=== PATIENT | male | born 1985 | race Caucasian/White ===

== ENCOUNTER 2018-04-11 08:01 | Day surgery (SDC) | payer OTHER ==
[~2018-04-11] VITALS: Ht 180.3 cm; Wt 102.7 kg
[2018-04-11 08:48] VITALS: BP 122/84; PULSE 63; TEMP 97
[2018-04-11 10:10] VITALS: BP 104/70; PULSE 76; TEMP 98
[2018-04-11 10:25] VITALS: BP 90/60; PULSE 70
[2018-04-11 10:40] VITALS: BP 97/70; PULSE 62
[2018-04-11 10:55] VITALS: BP 103/72; PULSE 60
== END 2018-04-11 11:15 | disposition home or self-care (01) ==
LOC: SDCO 08:01
DX: K29.30 Chronic superficial gastritis without bleeding (principal); Z87.19 Personal history of other diseases of the digestive system
CPT/HCPCS: J2250; J2405; J3010; J7030

== ENCOUNTER 2018-06-07 10:52 | Outpatient (RCR) | payer OTHER | END 2018-06-19 14:20 | disposition home or self-care (01) | LOC: WSOH 10:52 | DX: Z02.89 Encounter for other administrative examinations (principal) ==

== ENCOUNTER 2019-09-21 12:14 | Emergency (ER) | payer SELFPAY ==
[~2019-09-21] VITALS: Ht 182.9 cm; Wt 104.5 kg
[2019-09-21 12:21] VITALS: TEMP 97.8
[2019-09-21] MEDS ORDERED: STATIN (12:54)
[2019-09-21] MEDS ORDERED: PANTOPRAZOLE (12:54)
[2019-09-21 13:12] LABS: COLLECTION METHOD CLEAN CATCH
[2019-09-21 13:22] LABS: BASO % 0.3 % (0.0-2.0); EOS # 0.1 (0.0-0.7); EOS % 0.9 % (0-4.0); GRAN # 7.7 (1.4-6.5); GRAN % 68.6 % (42.2-75.2); HEMATOCRIT 47.4 % (42.0-52.0); HEMOGLOBIN 16.1 g/dl (13.5-18.0); LYMPH # 2.5 (1.2-3.4); MEAN CELL VOLUME 85 fl (80.0-100.0); MEAN CORPUSCULAR HEMOGLOBIN 29 pg (27.0-31.0); MEAN CORPUSCULAR HGB CONC 34 g/dl (33.0-37.0); MEAN PLATELET VOLUME 9.8 fl (7.4-10.4); MONO # 0.9 (0.1-0.6); MONO % 7.8 % (1.7-9.3); PLATELET COUNT 247 K/mm3 (130-400); RED BLOOD COUNT 5.55 M/mm3 (4.20-5.60)
[2019-09-21 13:24] LABS: PH 6 (5-8); SQUAMOUS EPITHELIAL None Seen /hpf; URINE APPEARANCE Clear; URINE BACTERIA None Seen /hpf; URINE BILIRUBIN Negative (NEGATIVE); URINE BLOOD Negative (NEGATIVE); URINE COLOR Colorless; URINE GLUCOSE Negative (NEGATIVE); URINE KETONE Negative (NEGATIVE); URINE LEUKOCYTE ESTERASE Negative (NEGATIVE); URINE NITRATE Negative (NEGATIVE); URINE PROTEIN(semi-quant) Negative (NEGATIVE); URINE RBC None Seen /hpf; URINE UROBILINOGEN Negative (NEGATIVE)
[2019-09-21 13:26] LABS: ALBUMIN 4.8 gm/dL (3.5-5.0); BILIRUBIN,TOTAL 1.1 mg/dL (0.0-1.0); CALCIUM 9.8 mg/dL (8.4-10.2); CREATININE, serum 1.17 (0.66-1.25); MAGNESIUM 2.2 mg/dL (1.6-2.3); POTASSIUM 3.9 mmol/L (3.4-5.0); TOTAL PROTEIN 8.2 gm/dL (6.4-8.2)
[2019-09-21 14:40] VITALS: BP 113/83; PULSE 65
== END 2019-09-21 14:42 | disposition home or self-care (01) ==
LOC: COL.ER 12:14
PROVIDERS: Emergency Medicine
DX: T67.5XXA Heat exhaustion, unspecified, initial encounter (principal); E78.5 Hyperlipidemia, unspecified; K27.9 Peptic ulcer, site unspecified, unspecified as acute or chronic, without hemorrhage or perforation; Z90.49 Acquired absence of other specified parts of digestive tract
CPT/HCPCS: J7030

== ENCOUNTER 2021-04-13 08:01 | Outpatient (RCR) | payer OTHER ==
[~2021-04-13 08:01] MED LIST: PANTOPRAZOLE; STATIN
== END 2021-04-27 | disposition home or self-care (01) ==
LOC: WSOH
DX: S93.401D Sprain of unspecified ligament of right ankle, subsequent encounter (principal); K76.9 Liver disease, unspecified; Z90.49 Acquired absence of other specified parts of digestive tract; Y99.0 Civilian activity done for income or pay
CPT/HCPCS: 24774; L1810

== ENCOUNTER 2021-05-04 10:45 | Outpatient (RCR) | payer OTHER | END 2021-05-28 | disposition home or self-care (01) | LOC: WSOH | DX: S93.401D Sprain of unspecified ligament of right ankle, subsequent encounter (principal); Y99.0 Civilian activity done for income or pay; K74.60 Unspecified cirrhosis of liver; Z90.49 Acquired absence of other specified parts of digestive tract ==